=== PATIENT | female | born 1975 | race Caucasian/White ===

== ENCOUNTER → 2018-10-23 | Outpatient (CLI) | payer BC | LOC: MC.RAD 09:30 | DX: N63.21 Unspecified lump in the left breast, upper outer quadrant (principal) | CPT/HCPCS: G0279 ==

== ENCOUNTER → 2019-04-28 | Outpatient (CLI) | payer BC | LOC: MC.RAD 10:08 | DX: N63.21 Unspecified lump in the left breast, upper outer quadrant (principal); R23.3 Spontaneous ecchymoses ==